=== PATIENT | female | born 1995 | race Caucasian/White ===

== ENCOUNTER 2020-07-25 18:11 | Emergency (ER) | payer OTHER ==
[~2020-07-25] VITALS: Ht 160 cm; Wt 74.0 kg
[2020-07-25 18:11] VITALS: BP 141/67
[2020-07-25] MEDS ORDERED: ADV250INH INH (18:21)
[2020-07-25] MEDS ORDERED: TEST1INJ3 IM (18:21)
== END 2020-07-25 21:05 | disposition home or self-care (01) ==
LOC: M ED 18:11
DX: F31.9 Bipolar disorder, unspecified (principal); Z79.890 Hormone replacement therapy; Z79.51 Long term (current) use of inhaled steroids

== ENCOUNTER 2020-07-27 12:36 | Inpatient (IN) | payer OTHER ==
[~2020-07-27] VITALS: Ht 160 cm; Wt 74.5 kg
[~2020-07-27 12:36] MED LIST: ADV250INH INH; TEST1INJ3 IM
--- OUTSIDE RECORDS SUMMARY | 2020-07-27 12:51 | CCD ---
Author Author [facility] Address Unknown Phone Unavailable Support Name Relationship Address Phone UE Next Of Kin Unknown Unavailable KRISTINA REY Next Of Kin [address] [address] Re-disclosure Warning The records that you are about to access may contain information from federally-assisted alcohol or drug abuse programs. If such information is present, then the following federally mandated warning applies: This information has been disclosed to you from records protected by federal confidentiality rules (42 CFR part 2). The federal rules prohibit you from making any further disclosure of this information unless further disclosure is expressly permitted by the written consent of the person to whom it pertains or as otherwise permitted by 42 CFR part 2. A general authorization for the release of medical or other information is NOT sufficient for this purpose. The Federal rules restrict any use of the information to criminally investigate or prosecute any alcohol or drug abuse patient.The records that you are about to access may contain highly sensitive health information, the redisclosure of which is protected by Article 27-F of the [facility] Public Health law. If you continue you may have access to information: Regarding HIV / AIDS; Provided by facilities licensed or operated by the [facility] Office of Mental Health; or Provided by the [facility] Office for People With Developmental Disabilities. If such information is present, then the following [facility] mandated warning applies: This information has been disclosed to you from confidential records which are protected by state law. State law prohibits you from making any further disclosure of this information without the specific written consent of the person to whom it pertains, or as otherwise permitted by law. Any unauthorized further disclosure in violation of state law may result in a fine or fpc sentence or both. A general authorization for the release of medical or other information is NOT sufficient authorization for further disc losure. Insurance Providers Payer name Policy type / Coverage type Policy ID Covered alliance party ID Covered alliance party's relationship to mackey Policy Mackey Plan Information RAISSA [id number] 000 RAISSA [id number]
[2020-07-27 15:02] LABS: HEMATOCRIT 48.1 % (36.0-47.0); HEMOGLOBIN 15.7 g/dl (12.0-15.5); MEAN CORPUSCULAR HEMOGLOBIN 29.8 pg (27.0-33.0); MEAN CORPUSCULAR HGB CONC 32.6 g/dl (32.0-36.5); MEAN CORPUSCULAR VOLUME 91.3 fl (80.0-96.0); PLATELET COUNT, AUTOMATED 248 10^3/uL (150-450); RED BLOOD COUNT 5.27 10^6/uL (4.00-5.40); WHITE BLOOD COUNT 10.1 10^3/uL (4.0-10.0)
[2020-07-27 15:26] LABS: AMPHETAMINES LEVEL URINE NEGATIVE (NEGATIVE); BARBITURATES URINE NEGATIVE (NEGATIVE); BENZODIAZEPINES URINE NEGATIVE (NEGATIVE); CANNABINOIDS URINE POSITIVE (NEGATIVE); COCAINE METABOLITE URINE NEGATIVE (NEGATIVE); METHADONE URINE NEGATIVE (NEGATIVE); OPIATES URINE NEGATIVE (NEGATIVE); PHENCYCLIDINE URINE NEGATIVE (NEGATIVE)
[2020-07-27 15:42] LABS: HCG, SERUM QUALITATIVE NEGATIVE (NEGATIVE)
[2020-07-27 15:59] LABS: ACETAMINOPHEN LEVEL < 2.0 UG/ML (10.0-30.0); ALBUMIN 4.5 GM/DL (3.2-5.2); ALT/SGPT 31 U/L (12-78); BILIRUBIN,DIRECT 0.1 MG/DL (0.0-0.2); BILIRUBIN,TOTAL 0.4 MG/DL (0.2-1.0); BLOOD UREA NITROGEN 10 MG/DL (7-18); CALCIUM LEVEL 9.8 MG/DL (8.5-10.1); CARBON DIOXIDE LEVEL 28 MEQ/L (21-32); CHLORIDE LEVEL 105 MEQ/L (98-107); CREATININE FOR GFR 0.76 MG/DL (0.55-1.30); ETHYL ALCOHOL (ETHANOL) 0.005 % (0.000-0.010); GLOMERULAR FILTRATION RATE > 60.0 (>60); GLUCOSE, FASTING 87 MG/DL (70-100); POTASSIUM SERUM 3.8 MEQ/L (3.5-5.1); SALICYLATE LEVEL < 1.7 MG/DL (5.0-30.0); SODIUM LEVEL 137 MEQ/L (136-145); TOTAL PROTEIN 7.9 GM/DL (6.4-8.2)
[2020-07-27 19:06] LABS: RSV AMPLIFICATION NEGATIVE (NEGATIVE)
[2020-07-27] MEDS ORDERED: ACETAMINOPHEN TAB 650MG DOSE (2X325MG) PO ONE (21:15)
[2020-07-27] MEDS ORDERED: ADV250INH INH (22:16)
[2020-07-27] MEDS ORDERED: VENTAER INH (22:16)
[2020-07-27] MEDS ORDERED: TEST200I14 IM (22:16)
[2020-07-27] MEDS ORDERED: ACETAMINOPHEN TAB 650MG DOSE (2X325MG) PO PRN (23:15)
[2020-07-27] MEDS ORDERED: MOM 30ML SUSPENSION UDC PO PRN (23:15)
[2020-07-27] MEDS ORDERED: NICOTINE 21MG/24HR 1 EA TRANSDERMAL TD PRN (23:15)
[2020-07-27] MEDS ORDERED: MAALOX 30 ML SUSP *UDC PO PRN (23:15)
--- OUTSIDE RECORDS SUMMARY | 2020-07-27 23:25 | CCD ---
Author Author [facility] Organization [facility] Address Unknown Phone Unavailable Support Name Relationship Address Phone UE Next Of Kin Unknown Unavailable KRISTINA REY Next Of Kin [facility] [address] Re-disclosure Warning The records that you are [...] is protected by Article 27-F of the [facility] Public Health law. If you continue you may have access to information: Regarding HIV / AIDS; Provided by facilities licensed or operated by the [facility] Office of Mental Health; or Provided by the [facility] Office for People With Developmental Disabilities. If such information is present, then the following [facility] mandated warning applies: This information has been [...] law may result in a fine or custodial sentence or both. A general authorization for the release of medical or other information is NOT sufficient authorization for further disc losure. Insurance Providers Payer name Policy type / Coverage type Policy ID Covered alliance party ID Covered alliance party's relationship to mackey Policy Mackey Plan Information RAISSA [id number] 000 RAISSA [id number] SP [id number]
[2020-07-27] MEDS ORDERED: traZODone 50 MG TAB PO PRN (23:45)
[2020-07-28 01:19] VITALS: BP 134/84
[2020-07-28] MEDS: OLANZapine ORAL DISINTEGRATING TAB 5MG PO PRN ×2 (02:06→08:00)
--- NOTE | 2020-07-28 05:56 | ECGEPIP ---
[facility] - ED Test Date: 2020-07-27 Pat Name: SHAR MCCORMACK Department: Room: - Gender: Female Outpatient Coder: Tracey WYATT : 1995 Requested By: ZAINAB Pitt Order Number: [id number] Reading MD: Stephen Christensen Measurements Intervals Devine Rate: 75 P: 60 NE: 135 QRS: 79 QRSD: 101 T: 40 QT: 356 QTc: 399 Interpretive Statements SINUS RHYTHM WITH SINUS ARRHYTHMIA POOR R WAVE PROGRESSION NO PRIORS FOR COMPARISON Electronically Signed on 07-28-2020 5:55:38 EST by Stephen Christensen
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
[2020-07-28] MEDS ORDERED: ALBUTEROL 90 MCG/ACT 8GM HFA INHALER INH PRN (14:15)
--- NOTE | 2020-07-28 14:15 | HPEPDOC ---
General Date of Admission Jul 27, 2020 at 23:10 Date of Service: Jul 28, 2020 Chief Complaint The patient is a 25-year-old female admitted with a reason for visit of Unspecified Mood Disorder. Source: Patient Exam Limitations: No limitations Timing/Duration: Day(s) Severity: Mild History of Present Illness Patient is 25 years old female to male transgender, who reports she has been struggling with her "mental health." She reports, "my thoughts are all over the place and I'm having mood swings." She states her mood swings have been leading her to have multiple arguments with significant other. Patient was diagnosed with bipolar disorder, depression and anxiety. Also patient stated that she has the diagnosis of asthma since childhood. Patient denies fever, chills, nausea, vomiting, diarrhea or dysuria. Of note patient receives regular injection of testosterone Home Medications Scheduled Salmeterol/Fluticasone (Advair 250-50 Diskus) 1 Each Blst.w.dev, 1 PUFF INH BID, (Reported) Testosterone Cypionate (Testosterone Cypionate) 200 Mg/1 Ml Vial, 0.3 ML IM QWEEK, (Reported) MONDAYS Scheduled PRN Albuterol Sulfate (Ventolin Hfa) 18 Gm Hfa.aer.ad, 2 PUFFS INH Q4H PRN for W HEEZING, (Reported) Allergies Coded Allergies: No Known Allergies (Unverified , 07/25/20) Past Medical History Medical History Bipolar, depression, anxiety, asthma Family History I personally reviewed family history and found not pertinent Social History * Smoker: former Smoker Alcohol: occationally Drugs: marijuana A-FIB/CHADSVASC A-FIB History Current/History of A-Fib/PAF?: No Current PO Anticoag Therapy: No Review of Systems Constitutional: Denies: Chills Eyes: Denies: Pain ENT: Denies: Head Aches Skin: Denies: Rash Pulmonary: Denies: Dyspnea, Cough Cardiovascular: Denies: Chest Pain Gastrointestinal: Denies: Nausea, Vomiting Genitourinary: Denies: Dysuria Endocrine: Denies: Polydipsia Musculoskeletal: Denies: Neck Pain Neurological: Denies: Weakness Psych: Reports: Depression Physical Examination General Exam: Positive: Alert, Cooperative Eye Exam: Positive: PERRLA ENT Exam: Positive: Atraumatic Neck Exam: Positive: Supple; Negative: JVD Chest Exam: Positive: Clear to auscultation Heart Exam: Positive: Rate Normal Telemetry: Positive: No significant arrhythmia Extremity Exam: Negative: Clubbing, Cyanosis Skin Exam: Positive: Nl turgor and temperature Neuro Exam: Positive: Strength at 5/5 X4 ext Psych Exam: Positive: Mental status NL Vital Signs Vital Signs Date Time Temp Pulse Resp B/P (MAP) Pulse Ox O2 Delivery O2 Flow Rate FiO2 07/28/20 01:19 97.9 94 18 134/84 (101) 97 Room Air Laboratory Data Labs 24H Laboratory Tests 2 07/27/20 14:32: Nucleated Red Blood Cells % (auto) 0.0, Anion Gap 4L, Glomerular Filtration Rate > 60.0, Calcium Level 9.8, Total Bilirubin 0.4, Direct Bilirubin 0.1, Aspartate Amino Transf (AST/SGOT) 15, Alanine Aminotransferase (ALT/SGPT) 31, Alkaline Phosphatase 93, Total Protein 7.9, Albumin 4.5, Albumin/Globulin Ratio 1.3, Thyroid Stimulating Hormone (TSH) 2.070, Human Chorionic Gonadotropin, Qual NEGATIVE, Salicylates Level < 1.7L, Urine Opiates Screen NEGATIVE, Urine Methadone Screen NEGATIVE, Acetaminophen Level < 2.0L, Urine Barbiturates Screen NEGATIVE, Urine Phencyclidine Screen NEGATIVE, Urine Amphetamines Screen NEGATIVE, Urine Benzodiazepines Screen NEGATIVE, Urine Cocaine Metabolite Screen NEGATIVE, Urine Cannabinoids Screen POSITIVEH, Ethyl Alcohol Level 0.005 07/27/20 18:05: Coronavirus (COVID-19)(PCR) NEGATIVE, Influenza Type A (RT-PCR) NEGATIVE, Influenza Type B (RT-PCR) NEGATIVE, Respiratory Syncytial Virus (PCR) NEGATIVE CBC/BMP Laboratory Tests 07/27/20 14:32 Assessment/Plan Patient is 25 years old female to male transgender, who reports she has been struggling with her "mental health." She reports, "my thoughts are all over the place and I'm having mood swings." She states her mood swings have been leading her to have multiple arguments with significant other. Patient was diagnosed with bipolar disorder, depression and anxiety. Also patient stated that she has the diagnosis of asthma since childhood. Patient denies fever, chills, nausea, vomiting, diarrhea or dysuria. Of note patient receives regular injection of testosterone Problems (1) Bipolar 1 disorder Status: Acute Problem Text: will defer treatment to psych team (2) Asthma Status: Chronic Problem Text: Not in acute exacerbation Home inhalers Plan / VTE VTE Prophylaxis Ordered?: No VTE Exclusion Mechanical Proph: Low Risk for VTE LEESA NEELY DO Jul 28, 2020 14:15
[2020-07-28 16:22] VITALS: BP 135/74
[2020-07-28] MEDS: hydrOXYzine 25 MG TAB PO PRN (16:53)
[2020-07-28] MEDS: QUEtiapine FUMARATE 50MG TAB PO SCH (21:53)
[2020-07-28] MEDS: ADVAIR HFA 115/21MCG INHALER INH SCH (22:04)
[2020-07-29] MEDS: ADVAIR HFA 115/21MCG INHALER INH SCH ×2 (10:02→19:46)
[2020-07-29] MEDS: hydrOXYzine 25 MG TAB PO PRN ×2 (11:45→19:45)
--- NOTE | 2020-07-29 12:02 | MHIPNPDOC ---
[facility] Progress Note Progress Note DATE OF SERVICE: 07/29/20 HISTORY: Patient is a 25 -year-old , female to male transgender, who reports she has been struggling with her "mental health." She reports, "my thou ghts are all over the place and I'm having mood swings." She states her mood swings have been leading her to have multiple arguments with significant other. Hortencia reports she the mood swings have been going on about 2 weeks and has had no outpatient treatment for about a year. At this time, she denies si/hi/ah/vh. she denies any previous psychiatric admissions prior VITAL SIGNS: See below. CURRENT MEDICATIONS: See below. General Appearance: well groomed, appears stated age, hospital scubs/clothing Build: average Demeanor: average Eye Contact: good Activity: average Behavior: cooperative Speech: clear, spontaneous, normal volume, reg/rate,rhythm,volume Mood: euthymic Affect: flat, congruent Thought Process: logical/linear Thought Content (Delusions): denies SI, HI, AVH Thought Content (Other): none reported Thought Content (Aggressive): none reported Perception (Hallucinations): none reported Perception (Other): none reported Cognition (Impairment of): none reported Cognition(Intelligence Est.): average Oriented: Awake, Alert, Oriented times three Insight: fair Judgment: Fair Psychosis: Denies Diagnoses unspecified mood disorder Rule out bipolar II disorder ASSESSMENT: Hortencia reports she feels "good." She states, "mentally I feel great but physically I feel shaky and kind of anxious." She reports that this feeling began this morning and that it may be related to nicotine withdrawal. She reports that sleep and appetite are adequate and that she has been attending groups. At this time, she denies feeling irritable or angry, denies si/hi/ah/vh. She reports she has spoken to the girlfriend, who is supportive and plans on returning to her residence after discharge At this time she reports, "I don't feel mentally anxious or upset, which is really cool and I'm focusing on good things, not bad things like before. I didn't necessarily want to come here but I think it was for the best." Patient has normal MSE, denies si/hi and therefore no longer meets involuntary criteria. she will discharge tomorrow and patient is agreeable. MANAGEMENT PLAN: Continue all medications start nicotine patch 7 mg daily Discharge 07/30/20 TIME SPENT: 25 minutes. Vital Signs Vital Signs Date Time Temp Pulse Resp B/P (MAP) Pulse Ox O2 Delivery O2 Flow Rate FiO2 07/28/20 16:22 99.0 83 16 135/74 (94) 98 Room Air Current Medications Current Medications Medications (Trade) Dose Ordered Sig/Danielle Route PRN Reason Start Time Stop Time Status Last Admin Dose Admin Acetaminophen (Tylenol Tab) 650 mg Q6HP PRN PO HEADACHE or DISCOMFORT 07/27/20 23:15 Al Hydrox/Mg Hydrox/Simethicone (Mylanta) 30 ml Q4HP PRN PO HEARTBURN/INDIGESTION 07/27/20 23:15 Albuterol Sulfate (Proventil, Ventolin Hfa) 2 puff Q4H PRN INH WHEEZING 07/28/20 14:15 Aripiprazole (AbiLIFY) 5 mg QHS PO 07/27/20 21:00 07/28/20 13:15 DC Home Med (Med Rec Complete!) ASDIRECTED XX 07/27/20 22:30 07/27/20 22:17 DC Hydroxyzine HCl (Atarax) 25 mg TIDP PRN PO ANXIETY 07/28/20 13:30 07/29/20 11:45 Magnesium Hydroxide (Milk Of Magnesia) 30 ml DAILYPRN PRN PO CONSTIPATION 07/27/20 23:15 Nicotine (Nicoderm Cq 21mg) 1 patch DAILY PRN TD Nicotine withdrawl. 07/27/20 23:15 Olanzapine (ZyPREXA ZYDIS) 5 mg Q4HP PRN PO AGITATION 07/27/20 23:15 07/28/20 13:20 DC 07/28/20 08:00 Quetiapine Fumarate (SEROquel) 50 mg QHS PO 07/28/20 21:00 07/28/20 21:53 Salmeterol Xinafoate/ Fluticasone (Advair Hfa ) 1 puff RBID INH 07/28/20 20:00 07/29/20 10:02 Trazodone HCl (Desyrel) 50 mg QHSP PRN PO INSOMNIA 07/27/20 23:45 07/28/20 02:06 Allergies Coded Allergies: No Known Allergies (Unverified , 07/25/20) KENNA POTTER NP Jul 29, 2020 12:02
[2020-07-29] MEDS: NICOTINE 7 MG/24 HR TRANSDERMAL TD PRN (13:00)
[2020-07-29 17:51] VITALS: BP 128/82
[2020-07-29] MEDS: QUEtiapine FUMARATE 50MG TAB PO SCH (19:45)
[2020-07-30 06:00] VITALS: BP 113/58
[2020-07-30] MEDS: ADVAIR HFA 115/21MCG INHALER INH SCH (07:45)
[2020-07-30] MEDS: NICOTINE 7 MG/24 HR TRANSDERMAL TD PRN (08:16)
[2020-07-30] MEDS ORDERED: QUET50TA3 PO (09:36)
[2020-07-30] MEDS ORDERED: NICO7PA TD (09:36)
[2020-07-30] MEDS ORDERED: HYDR-3363 PO (09:36)
--- NOTE | 2020-07-30 10:54 | MHDSPDOC ---
[facility] Discharge Summary Discharge Summary DATE OF ADMISSION: Jul 27, 2020 at 23:10 DATE OF DISCHARGE: Jul 30, 2020 at 1039 DISCHARGE DIAGNOSES: unspecified mood disorder Rule out bipolar II disorder REASON FOR ADMISSION: Patient is a 25 -year-old , female to male transgender, who reports she has been struggling with her "mental health." She reports, "my thoughts are all over the place and I'm having mood swings." She states her mood swings have been leading her to have multiple arguments with significant other. Hortencia reports she the mood swings have been going on about 2 weeks and has had no outpatient treatment for about a year. At this time, she denies si/hi/ah/vh. she denies any previous psychiatric admissions prior. As mentioned previously, patient is a female to male tansgender and will therefore but addressed as preferred pronoun "he" CONSULTANTS INVOLVED: See hospitalist H&P TREATMENT AND PROGRESS ON THE UNIT : Patient was admitted on a 9.39 to [facility] from the ED and was afforded the following treatment modalities: 1)medication management and therapy 2) group therapy 3) individual therapy 4) [facility] therapy HOSPITAL COURSE: Patient self presented to the emergency room with increased depression, mood swings, irritability, and anger. He was admitted on a 9.39. Since admission, he was started on seroquel 50 mg po qhs and has reported an improved mood, no anger/irritability, and decreased anxiety. He is agreeable to the discharge plan. DISCHARGE ASSESSMENT: In today's session, Hortencia reported that he feels he would like to be discharged. He reports that prior to admission he was irritable and had high anxiety due to multiple stressors - mentions politics and the pandemic as a few examples. He states, "since coming here, I have started the meds and have chilled out, I feel 100%." He states he has spoken to his girlfriend daily, who reports "she is excited that I'm getting out today." Yesterday he complained of "physical anxiety" and shakiness but reports that after starting on the nicotine patch, that has since gone away. He believes it may have been due to nicotine withdrawal. He reports he would like to continue on the nicotine patches after discharge, as he plans on quitting chewing. He reports that prior to admission he made an appointment at [facility] for therapy and psychiatry and intends on following up there after discharge. He has a normal MSE, denies si/hi/depression or anxiety and therefore does not meet involuntary criteria. He is agreeable to being discharged today. MENTAL STATUS EXAMINATION ON DISCHARGE: Hortencia is a a 25 year old female to male transgender who is currently undergoing treatment for gender change, as he takes testosterone injections weekly. He is agreeable to meet for the interview, is pleasant, cooperative, smiling throughout the session. Mood and affect bright, looking forward to discharge home. General Appearance: well groomed, appears stated age, hospital scubs/clothing Build: average Demeanor: average Eye Contact: fair Activity: average Behavior: cooperative Speech: clear, spontaneous, normal volume, reg/rate,rhythm,volume Mood: euthymic Affect: full, congruent with mood Thought Process: logical/linear Thought Content (Delusions): denies SI, HI, AVH Thought Content (Other): none reported Thought Content (Aggressive): none reported Perception (Hallucinations): none reported Perception (Other): none reported Cognition (Impairment of): none reported Cognition(Intelligence Est.): average Oriented: Awake, Alert, Oriented times three Insight: good Judgment: good Psychosis: Denies MEDICATIONS ON DISCHARGE: -seroquel 50 mg po qhs -hydroxyzine 25 mg po bid prn anxiety - nicotine patch 7 mg /24 hours PLAN/FOLLOWUP ARRANGEMENTS: [facility] The amount of time spent in the coordination of care for this patient was approximately 30 minutes. Vital Signs/I&Os Vital Signs Date Time Temp Pulse Resp B/P (MAP) Pulse Ox O2 Delivery O2 Flow Rate FiO2 07/30/20 06:00 98.4 91 17 113/58 (76) 99 07/28/20 16:22 Room Air Medications Scheduled Quetiapine Fumarate (Quetiapine Fumarate) 50 Mg Tablet, 50 MG PO QHS for anti psychotic, #7 Salmeterol/Fluticasone (Advair 250-50 Diskus) 1 Each Blst.w.dev, 1 PUFF INH BID, (Reported) Testosterone Cypionate (Testosterone Cypionate) 200 Mg/1 Ml Vial, 0.3 ML IM QWEEK, (Reported) MONDAYS Scheduled PRN Albuterol Sulfate (Ventolin Hfa) 18 Gm Hfa.aer.ad, 2 PUFFS INH Q4H PRN for WHEEZING, (Reported) Hydroxyzine HCl (Hydroxyzine HCl) 25 Mg Tablet, 25 MG PO BIDP PRN for ANXIETY, #14 Nicotine (Nicotine Patch) 7 Mg Patch.td24, 1 PATCH TD DAILY PRN for Nicotine Withdrawal, #7 Allergies Coded Allergies: No Known Allergies (Unverified , 07/25/20) KENNA POTTER NP Jul 30, 2020 10:54
== END 2020-07-30 12:05 | disposition home or self-care (01) | DRG 753 ==
LOC: M ED 12:36 → M ED INP 23:10 → M PSY 07-28 01:28
PROVIDERS: ADMIT Psychiatry & Neurology Psychiatry; ATTEND Psychiatry & Neurology Psychiatry
DX: F39 Unspecified mood [affective] disorder (principal); F17.220 Nicotine dependence, chewing tobacco, uncomplicated; F31.81 Bipolar II disorder; J45.909 Unspecified asthma, uncomplicated; F64.0 Transsexualism; Z79.899 Other long term (current) drug therapy; Z11.52 Encounter for screening for COVID-19

== ENCOUNTER → 2020-08-30 | Outpatient (CLI) | payer OTHER ==
[~2020-08-30] MED LIST changes: +HYDR-3363 PO; +NICO7PA TD; +QUET50TA3 PO; +TEST200I14 IM; +VENTAER INH
== END ==
LOC: M LABSMTC 12:47
PROVIDERS: ATTEND Family Medicine
DX: Z20.822 Contact with and (suspected) exposure to COVID-19 (principal)
CPT/HCPCS: C9803; U0003

== ENCOUNTER → 2022-07-11 | Outpatient (CLI) | payer OTHER ==
[~2022-07-11] MED LIST changes: -QUET50TA3 PO; +QUET50TA4 PO
[2022-07-11 15:28] LABS: BASO % 0.3 % (0.0-1.0); EOS # 0.2 10^3/uL (0.0-0.5); EOS % 1.7 % (0.0-3.0); HEMATOCRIT 48.1 % (36.0-47.0); HEMOGLOBIN 15.6 g/dl (12.0-15.5); LYMPH # 4.9 10^3/uL (1.5-5.0); LYMPH % 41.1 % (24.0-44.0); MEAN CORPUSCULAR HEMOGLOBIN 29.9 pg (27.0-33.0); MEAN CORPUSCULAR HGB CONC 32.4 g/dl (32.0-36.5); MEAN CORPUSCULAR VOLUME 92.3 fl (80.0-96.0); MONO # 0.7 10^3/uL (0.0-0.8); MONO % 6.1 % (2.0-8.0); NEUTROPHILS # 6.1 10^3/uL (1.5-8.5); NEUTROPHILS % 50.5 % (36.0-66.0); PLATELET COUNT, AUTOMATED 318 10^3/uL (150-450); RED BLOOD COUNT 5.21 10^6/uL (4.00-5.40)
[2022-07-11 15:52] LABS: HEPATITIS B SURFACE ANTIBODY NEGATIVE (POSITIVE)
[2022-07-11 15:53] LABS: ALBUMIN 4.1 G/DL (3.2-5.2); ALKALINE PHOSPHATASE 148 U/L (46-116); ALT/SGPT 48 U/L (7.0-40); AST/SGOT 28 U/L (<34); BILIRUBIN,TOTAL 0.3 MG/DL (0.3-1.2); BLOOD UREA NITROGEN 12 MG/DL (9-23); CARBON DIOXIDE LEVEL 24 MMOL/L (20-31); CHLORIDE LEVEL 103 MMOL/L (98-107); CREATININE FOR GFR 0.82 MG/DL (0.55-1.30); GLOMERULAR FILTRATION RATE > 60.0 (>60); GLUCOSE, FASTING 62 MG/DL (60-100); SODIUM LEVEL 140 MMOL/L (136-145)
[2022-07-11 15:54] LABS: TOTAL 25(OH) VITAMIN D 20.1 NG/ML (20.0-100.0)
[2022-07-11 16:04] LABS: HEPATITIS B SURFACE ANTIGEN NEGATIVE (NEGATIVE)
[2022-07-11 16:17] LABS: HIV 1&2 SCREEN CENTAUR NEGATIVE (NEGATIVE)
== END ==
LOC: M PLALAB 12:48
PROVIDERS: ATTEND Student in an Organized Health Care Education/Training Program
DX: R74.01 Elevation of levels of liver transaminase levels (principal)

== ENCOUNTER → 2022-08-24 | Outpatient (CLI) | payer OTHER ==
[~2022-08-24] MED LIST changes: +AMPH1CAP15 PO; +ARIP1TAB10 PO; +METH27TA5 PO
== END ==
LOC: M LABSMTC 09:11
PROVIDERS: ATTEND Anesthesiology
DX: Z01.812 Encounter for preprocedural laboratory examination (principal); Z11.52 Encounter for screening for COVID-19

== ENCOUNTER 2022-08-29 06:01 | Observation (INO) | payer OTHER ==
[~2022-08-29] VITALS: Ht 160 cm; Wt 84.3 kg
[2022-08-29] VITALS (7 sets, daily range): BP systolic 105–131; BP diastolic 75–76
[~2022-08-29 06:01] MED LIST changes: +HEPARIN SOD (PORCINE) 5000UNITS/ML 1ML VIAL/SYRINGE SQ ONE; +ceFAZolin SOD 2 GM in IV 1 EA IV ONE
[2022-08-29] MEDS ORDERED: ONDANSETRON 4MG 2ML VIAL As Ordered ONE (07:23)
[2022-08-29] MEDS ORDERED: LIDOCAINE 2% 100MG/5ML SDV (FOR ANES.) As Ordered ONE (07:23)
[2022-08-29] MEDS ORDERED: ROCURONIUM BROMIDE 50MG/5ML VIAL As Ordered ONE ×2 (07:23→08:43)
[2022-08-29] MEDS ORDERED: propofoL 200 MG/20 ML VIAL As Ordered ONE ×2 (07:23→08:24)
[2022-08-29] MEDS ORDERED: fentaNYL 250 MCG/5 ML INJECTION As Ordered ONE (07:23)
[2022-08-29] MEDS ORDERED: MIDAZOLAM INJ 2MG/2ML VIAL As Ordered ONE (07:24)
[2022-08-29] MEDS ORDERED: LR 1,000 ML IV SCH ×3 (07:25→11:00)
[2022-08-29] MEDS ORDERED: BUPIVACAINE HCL 0.25% 10ML VIAL As Ordered ONE (07:27)
[2022-08-29] MEDS ORDERED: BUPIVACAINE LIPOSOME/PF 1.3% 20ML VIAL (13.3MG/ML)(EXPAREL) As Ordered ONE (07:28)
[2022-08-29] MEDS ORDERED: GENTAMICIN SULF 80MG/2ML VIAL As Ordered ONE (07:28)
[2022-08-29] MEDS ORDERED: ACETAMINOPHEN 1000MG 100ML IV BAG As Ordered ONE ×2 (08:09→12:24)
[2022-08-29] MEDS ORDERED: PHENYLephrine 500MCG 5ML (100MCG/ML) SYRINGE As Ordered ONE (08:14)
[2022-08-29] MEDS ORDERED: ONDANSETRON 4MG 2ML VIAL IV PRN ×3 (08:40→11:00)
[2022-08-29] MEDS ORDERED: oxyCODONE 5MG TAB PO PRN ×2 (08:40→11:00)
[2022-08-29] MEDS ORDERED: fentaNYL 100 MCG/2 ML INJECTION IV PRN ×2 (08:40→11:00)
[2022-08-29] MEDS ORDERED: HYDROmorphone HCL 2MG/ML 1ML VIAL As Ordered ONE (08:49)
[2022-08-29] MEDS ORDERED: SUGAMMADEX SODIUM 500 MG/5 ML VIAL (BRIDION) As Ordered ONE (08:49)
[2022-08-29] MEDS ORDERED: SEVOFLURANE INHAL SOLN 250 ML BTL As Ordered ONE (09:34)
[2022-08-29] MEDS ORDERED: traMADol 50 MG TAB PO PRN (10:50)
[2022-08-29] MEDS ORDERED: ACETAMINOPHEN TAB 650MG DOSE (2X325MG) PO PRN (10:50)
[2022-08-29] MEDS: ceFAZolin SOD 1 GM in D5W MINI-BAG PLUS 50 ML IV SCH ×2 (15:37→23:19)
[2022-08-29] MEDS: LR 1,000 ML IV SCH ×2 (15:41→23:19)
[2022-08-29] MEDS ORDERED: LORazepam 1 MG TAB PO PRN (18:50)
[2022-08-29] MEDS: PERCOCET 5MG/325MG TAB PO PRN (19:49)
[2022-08-29] MEDS ORDERED: ARIPiprazole 15 MG TAB (AbiLIFY) PO ONE (23:00)
[2022-08-30 02:02] VITALS: BP 103/61
[2022-08-30 05:40] VITALS: BP 105/63
[2022-08-30] MEDS: PERCOCET 5MG/325MG TAB PO PRN ×2 (05:52→11:04)
[2022-08-30] MEDS: ceFAZolin SOD 1 GM in D5W MINI-BAG PLUS 50 ML IV SCH (08:36)
[2022-08-30] MEDS ORDERED: PERCOCET PO (09:54)
[2022-08-30 10:00] VITALS: BP 111/63
[2022-08-30] MEDS: LR 1,000 ML IV SCH (13:30)
== END 2022-08-30 14:10 | disposition home or self-care (01) ==
LOC: M SDC 06:01 → M MS5PR 06:02
PROVIDERS: ADMIT Plastic Surgery Surgery of the Hand; ATTEND Plastic Surgery Surgery of the Hand
DX: F64.9 Gender identity disorder, unspecified (principal); N62 Hypertrophy of breast; Z79.890 Hormone replacement therapy; D75.1 Secondary polycythemia; J45.909 Unspecified asthma, uncomplicated; F90.9 Attention-deficit hyperactivity disorder, unspecified type; F31.9 Bipolar disorder, unspecified; F41.9 Anxiety disorder, unspecified; Z79.899 Other long term (current) drug therapy; F17.210 Nicotine dependence, cigarettes, uncomplicated
CPT/HCPCS: 19303; 19350; 88307; 96365; 96366; 96376; C9290; J0131; J0690; J1100; J1170; J1580; J1644; J2250; J2370; J2405; J3010; S0020